=== PATIENT | male | born 1930 | race Hispanic/Latino ===

== ENCOUNTER → 2018-07-15 | Outpatient (CLI) | payer OTHER | END | disposition home or self-care (01) | LOC: RAH 12:51 | PROVIDERS: ATTEND Otolaryngology Plastic Surgery within the Head & Neck | DX: E04.1 Nontoxic single thyroid nodule (principal); J38.01 Paralysis of vocal cords and larynx, unilateral; G51.0 Bell's palsy; R13.10 Dysphagia, unspecified; R06.02 Shortness of breath | CPT/HCPCS: 71046; 76536 ==

== ENCOUNTER → 2018-07-29 | Outpatient (CLI) | payer OTHER | END | disposition home or self-care (01) | LOC: RAH 10:24 | PROVIDERS: ATTEND Family Medicine | DX: R13.10 Dysphagia, unspecified (principal); J38.00 Paralysis of vocal cords and larynx, unspecified | CPT/HCPCS: 74230; 92611; G8996; G8997; G8998 ==

== ENCOUNTER 2018-11-25 09:30 | Day surgery (SDC) | payer OTHER ==
[2018-11-25] VITALS (9 sets, daily range): BP systolic 83–161; BP diastolic 46–85
[~2018-11-25] VITALS: Ht 167.6 cm; Wt 51.7 kg
[2018-11-25] MEDS ORDERED: DIABETES (10:28)
[2018-11-25] MEDS ORDERED: WATER PILL (10:28)
[2018-11-25] MEDS ORDERED: MINIPRESS (10:28)
[2018-11-25] MEDS ORDERED: METOPROLOL (10:28)
[2018-11-25] MEDS ORDERED: IRON (10:28)
[2018-11-25] MEDS ORDERED: FAMOTIDINE (10:28)
[2018-11-25] MEDS ORDERED: SODIUM CHLORIDE 0.9% 1000ML 1,000 ML IV ONE (10:49)
--- NOTE | 2018-11-25 10:50 | NUR ---
SILVER NITRATE APPLIED TO G-TUBE STOMA
[2018-11-25] MEDS ORDERED: SILVER NITRATE APPLICATOR 1 SWAB TP SCH (11:00)
--- NOTE | 2018-11-25 11:52 | NUR ---
DISCHARGE DAUGHTER HERE AT BEDSIDE. INSTRUCTIONS GIVEN TO HER. PT TO BE TRANSPORTED BY EMS TO HOME. DAUGHTERS HAS NO QUESTIONS AT THIS TIME.
== END 2018-11-25 11:55 | disposition home or self-care (01) ==
LOC: ENDO 09:30
PROVIDERS: ATTEND Internal Medicine
DX: K94.23 Gastrostomy malfunction (principal); K31.89 Other diseases of stomach and duodenum; K92.0 Hematemesis; I12.9 Hypertensive chronic kidney disease with stage 1 through stage 4 chronic kidney disease, or unspecified chronic kidney disease; E11.22 Type 2 diabetes mellitus with diabetic chronic kidney disease; N18.9 Chronic kidney disease, unspecified; Z86.73 Personal history of transient ischemic attack (TIA), and cerebral infarction without residual deficits; Z98.890 Other specified postprocedural states; K29.80 Duodenitis without bleeding
CPT/HCPCS: 43239; 43246; 82948 ×2; 88305; 93005; A4606; J7030